=== PATIENT | male | born 1960 | race Caucasian/White ===

== ENCOUNTER 2024-06-03 14:18 | Outpatient (CLI) | payer OTHER, SELFPAY ==
--- NOTE | 2024-06-03 14:20 | MM_ITS ---
WS: [id number] BILATERAL 3D TOMOSYNTHESIS DIGITAL SCREENING MAMMOGRAM WITH CAD CLINICAL INFORMATION: SCREENING HISTORY: Screening mammogram. No current complaints. COMPARISON: 2022 TECHNIQUE: Bilateral CC and MLO. FINDINGS: The breast are composed of extremely dense tissue, which can limit the detection of small underlying mass lesions. Ovoid nodular density upper outer LEFT breast appears more prominent compared to previo us measuring 10 mm. Recommend further evaluation with LEFT breast diagnostic mammography and ultrasou nd. RIGHT breast is unchanged. MM/[place] [id number] IMPRESSION: DENSITY: The breasts are extremely dense, which lowers the sensitivity of mammo graphy. BI-RADS: 0 - Incomplete: Need additional imaging evaluation FOLLOW UP: Need Additional Imaging Recommend LEFT breast diagnostic mammography and ultrasound in further evaluati on.
== END 2024-06-03 14:19 | disposition home or self-care (01) ==
LOC: MOBLMAM 14:46
PROVIDERS: PCP Nurse Practitioner; Visit Provider Nurse Practitioner
DX: Z12.31 Encounter for screening mammogram for malignant neoplasm of breast (principal)
CPT/HCPCS: 77063; 77067

== ENCOUNTER 2024-07-30 09:02 | Outpatient (CLI) | payer OTHER, SELFPAY ==
--- NOTE | 2024-07-30 09:12 | MM_ITS ---
WS: [id number] LEFT 3D TOMOSYNTHESIS DIGITAL MAMMOGRAPHY WITH CAD CLINICAL INFORMATION: ABNORMAL MAMMOGRAM HISTORY: Additional views COMPARISON: 06/03/2024 TECHNIQUE: 3 views of the left breast were obtained. FINDINGS: The left breast is composed of heterogeneous fibroglandular density tissue, which can limit the detec tion of small underlying mass lesions. Again seen is the ovoid nodular density upper outer LEFT breas t measuring 10 mm which partially compresses out on the spot compression view but persistent. Ultraso und of this area is pending. Similar-appearing diffuse punctate calcifications. ULTRASOUND BREAST LEFT TECHNIQUE: Ultrasound left breast focused area of concern. CLINICAL INFORMATION: ABNORMAL MAMMOGRAM FINDINGS: Ultrasound upper outer quadrant LEFT breast. Dense parenchymal tissue upper outer quadrant. No cystic or solid lesions. No suspicious lesions to target for biopsy. Recommend return to annual screening rigoberto benz. MM/MM diag LT tomosynthesis [id number] IMPRESSION: DENSITY: The breasts are heterogeneously dense, which may obscure small masses. BI-RADS: 2 - Benign FOLLOW UP: 1 Year Follow-up Recommend return to annual screening mammography.
== END 2024-07-30 09:03 | disposition home or self-care (01) ==
LOC: RAD 09:03
PROVIDERS: PCP Nurse Practitioner; Visit Provider Nurse Practitioner
DX: N63.21 Unspecified lump in the left breast, upper outer quadrant (principal); R92.2 Inconclusive mammogram; R92.333 Mammographic heterogeneous density, bilateral breasts
CPT/HCPCS: 76642; 77061; G0279

== ENCOUNTER 2024-09-01 11:27 | Outpatient (CLI) | payer OTHER, SELFPAY ==
--- NOTE | 2024-09-01 11:37 | XR_ITS ---
WS: [id number] Exam: XR hand RT 2V [id number] Date/Time of Exam: 09/01/2024 12:02 PM Reason For Exam: R HAND PAIN No fracture noted. The joints are relatively well-maintained. Normal soft tissues. XR/XR hand RT 2V [id number] IMPRESSION: 1. Negative RIGHT hand.
--- NOTE | 2024-09-01 11:37 | XR_ITS ---
WS: [id number] Exam: XR wrist RT 2V [id number] Date/Time of Exam: 09/01/2024 12:02 PM Reason For Exam: R HAND PAIN No fracture or dislocation. The joints are preserved. Normal soft tissues. XR/XR wrist RT 2V [id number] IMPRESSION: 1. Negative RIGHT wrist.
== END 2024-09-01 11:28 | disposition home or self-care (01) ==
LOC: RAD 11:31
PROVIDERS: PCP Nurse Practitioner
DX: Z02.71 Encounter for disability determination (principal); M79.641 Pain in right hand
CPT/HCPCS: 73100; 73120